=== PATIENT | male | born 1945 | race Caucasian/White ===

== ENCOUNTER 2017-12-08 09:33 | Observation (INO) ==
[2017-12-08] MEDS ORDERED: ENOXAPARIN 100 MG/ML SYRINGE SUBCUT STA (10:18)
[2017-12-08] MEDS ORDERED: ASPIRIN 325 MG TABLET PO STA (10:18)
[2017-12-08 10:27] LABS: Basophils # 0.1 10*3/uL (0.0-0.2); Basophils % 0.4 % (0.0-0.8); Eosinophils # 0.1 10*3/uL (0.0-0.87); Eosinophils % 1.2 % (0.00-10.9); Hematocrit 40.6 VOL% (42.0-52.0); Hemoglobin 14.3 GM/DL (14.0-18.0); Immature Granulocytes % 0.4 %; Immature Granulocytes Absolute 0.05 #; Lymphocytes # 2.8 10*3/uL (1.4-4.0); Lymphocytes % 24.1 % (21.2-54.2); Mean Corpuscular HGB Conc 35.2 GM/DL (32-36); Mean Corpuscular Hemoglobin 30 PG (27-34); Mean Corpuscular Volume 86.4 FL (87-102); Mean Platelet Volume 11.7 FL (9.6-12.0); Monocytes # 0.9 10*3/uL (0.11-0.8); Monocytes % 7.7 % (1.7-12.7); Neutrophils # 7.7 10*3/uL (1.4-7.4); Neutrophils % 66.2 % (38.7-73.9); Platelet Count 247 T/CUMM (130-400); Red Cell Distribution Width 12.8 % (9.3-17.3); White Blood Count 11.6 T/CUMM (4-12)
[2017-12-08 10:39] LABS: INR 0.9; PT Patient Result 9.8 SECS
[2017-12-08 12:28] LABS: Albumin 4.7 G/DL (3.4-5.0); Bilirubin,Total 0.6 MG/DL (0.2-1.0); Calcium 9.6 MG/DL (8.5-10.1); Osmolality,Calculated 282.5 MOS/KG (273-304); Potassium 4.1 MMOL/L (3.5-5.1); Total Protein 8.3 G/DL (6.4-8.3)
[2017-12-08] MEDS ORDERED: MAGNESIUM SULF RIDER 2 GM in PREMIX 1 EACH IV PRN ×2 (12:53→13:53)
[2017-12-08] MEDS ORDERED: traZODone 50 MG TABLET PO PRN (12:53)
[2017-12-08] MEDS ORDERED: guaiFENesin/DM ER 600-30 MG TABLET PO PRN (12:53)
[2017-12-08] MEDS ORDERED: diphenhydrAMINE CAP 25 MG CAPSULE PO PRN (12:53)
[2017-12-08] MEDS ORDERED: PROMETHAZINE 25 MG TABLET PO PRN (12:53)
[2017-12-08] MEDS ORDERED: ACETAMINOPHEN 325 MG TABLET PO PRN (12:53)
[2017-12-08] MEDS ORDERED: POTASSIUM CHLORIDE 20 MEQ TABLET PO PRN (12:53)
[2017-12-08] MEDS ORDERED: BISACODYL 5 MG TABLET PO PRN (12:53)
[2017-12-08] MEDS ORDERED: MAGNESIUM SULF RIDER 4 GM in PREMIX 1 EACH IV PRN (12:53)
[2017-12-08] MEDS ORDERED: DOCUSATE SODIUM 100 MG CAPSULE PO PRN (12:53)
[2017-12-08] MEDS ORDERED: ONDANSETRON 4 MG/2 ML VIAL IV PRN (12:53)
[2017-12-08] MEDS ORDERED: PANTOPRAZOLE 40 MG VIAL IV ONE (13:13)
[2017-12-08] MEDS ORDERED: SODIUM CHLORIDE 0.45% 1,000 ML IV SCH (13:30)
[2017-12-08] MEDS ORDERED: POTASSIUM CHLORIDE RIDER 10 MEQ in PREMIX 1 EACH IV PRN (13:53)
[2017-12-08] MEDS ORDERED: DIAZEPAM 5 MG TABLET PO ONE (13:53)
[2017-12-08] MEDS ORDERED: diphenhydrAMINE CAP 25 MG CAPSULE PO ONE (13:53)
[2017-12-08] MEDS ORDERED: LIDOCAINE 1% 20 ML VIAL ONE (14:15)
[2017-12-08] MEDS ORDERED: HEPARIN/NACL 0.9% 2 UNITS/ML 1,000 ML IV ONE (14:15)
[2017-12-08] MEDS ORDERED: fentaNYL 100 MCG/2 ML VIAL ONE (14:16)
[2017-12-08] MEDS ORDERED: MIDAZOLAM 2 MG/2 ML VIAL ONE (14:16)
[2017-12-08] MEDS ORDERED: fentaNYL 100 MCG/2 ML VIAL IV PRN (15:24)
[2017-12-08] MEDS ORDERED: DEXTROSE 50% 25 GM/50 ML VIAL IV PRN (15:24)
[2017-12-08] MEDS ORDERED: ACETAMINOPHEN/CODEINE 300-30 MG TABLET PO PRN (15:24)
[2017-12-08] MEDS ORDERED: GLUCAGON 1 MG VIAL IM PRN (15:24)
[2017-12-08] MEDS: LOSARTAN 25 MG TABLET PO SCH ×2 (16:58→21:13)
[2017-12-08] MEDS: SPIRONOLACTONE 25 MG TABLET PO SCH (16:58)
[2017-12-08] MEDS: hydroCHLOROthiazide 12.5 MG CAPSULE PO SCH (16:58)
[2017-12-08] MEDS: INSULIN REGULAR 100 UNIT/ML SUBCUT SCH ×2 (17:03→21:14)
[2017-12-08] MEDS ORDERED: INSULIN NPH/REGULAR 70/30 100 UNIT/ML SUBCUT SCH (19:00)
[2017-12-08] MEDS ORDERED: VERAPAMIL SR 180 MG TABLET PO SCH (21:00)
[2017-12-08] MEDS ORDERED: SIMVASTATIN 20 MG TABLET PO SCH (21:00)
[2017-12-08 21:12] LABS: Apearance,Urine CLEAR (Clear); Bilirubin,Urine Negative (Negative); Blood, Urine Moderate mg/dL (Negative); Glucose,Urine (UA) Negative (Negative); Ketones,Urine Negative (Negative); Nitrite,Urine Negative (Negative); Protein,Urine 30 MG/DL; RBC,Urine 3 /HPF (0-4); Urine Color Straw (Yellow); Urine Specific Gravity 1.047 (1.001-1.035); Urine Urobilinogen < 2.0 EU/DL (0.2-1.0); WBC,Urine 1 /HPF (0-6)
[2017-12-08] MEDS: RAMIPRIL 5 MG CAPSULE PO SCH (21:13)
[2017-12-08] MEDS: GABAPENTIN 300 MG CAPSULE PO SCH (21:13)
[2017-12-09 05:38] LABS: Basophils % 0.2 % (0.0-0.8); Eosinophils # 0.2 10*3/uL (0.0-0.87); Eosinophils % 1.8 % (0.00-10.9); Hematocrit 37.3 VOL% (42.0-52.0); Hemoglobin 13.1 GM/DL (14.0-18.0); Immature Granulocytes % 0.3 %; Immature Granulocytes Absolute 0.03 #; Lymphocytes # 2.6 10*3/uL (1.4-4.0); Lymphocytes % 28.7 % (21.2-54.2); Mean Corpuscular HGB Conc 35.1 GM/DL (32-36); Mean Corpuscular Hemoglobin 30 PG (27-34); Mean Corpuscular Volume 86.1 FL (87-102); Mean Platelet Volume 11.9 FL (9.6-12.0); Monocytes # 0.7 10*3/uL (0.11-0.8); Neutrophils # 5.6 10*3/uL (1.4-7.4); Platelet Count 231 T/CUMM (130-400); Red Blood Count 4.33 MC/CUMM (3.8-5.5); Red Cell Distribution Width 12.7 % (9.3-17.3); White Blood Count 9.1 T/CUMM (4-12)
[2017-12-09 06:11] LABS: Calcium 8.5 MG/DL (8.5-10.1); Osmolality,Calculated 282.4 MOS/KG (273-304); Risk Ratio 3.13; Troponin I < 0.015 NG/ML (0.00-0.045); VLDL CHOLESTEROL 31.6 MG/DL
[2017-12-09] MEDS ORDERED: LEVOTHYROXINE 25 MCG TABLET PO SCH (06:30)
[2017-12-09 08:02] VITALS: BP 148/71
[2017-12-09] MEDS: INSULIN REGULAR 100 UNIT/ML SUBCUT SCH ×2 (08:37→11:54)
[2017-12-09] MEDS: GABAPENTIN 300 MG CAPSULE PO SCH (08:40)
[2017-12-09] MEDS: RAMIPRIL 5 MG CAPSULE PO SCH (08:40)
[2017-12-09] MEDS: SPIRONOLACTONE 25 MG TABLET PO SCH (08:40)
[2017-12-09] MEDS ORDERED: INSULIN NPH/REGULAR 70/30 100 UNIT/ML SUBCUT SCH (09:00)
[2017-12-09] MEDS ORDERED: ASPIRIN EC 81 MG TABLET PO SCH (09:00)
[2017-12-09] MEDS ORDERED: PANTOPRAZOLE 40 MG TABLET PO SCH (09:00)
[2017-12-09] MEDS ORDERED: CARVEDILOL 3.125 MG TABLET PO SCH (09:00)
[2017-12-09] MEDS: hydroCHLOROthiazide 12.5 MG CAPSULE PO SCH (09:31)
== END 2017-12-09 14:13 | disposition home or self-care (01) ==
LOC: N.EDINP 09:33 → N.ED 09:33 → N.2W 12:39 → N.TELES 14:39
PROVIDERS: ADMIT Internal Medicine Cardiovascular Disease; ATTEND Internal Medicine Cardiovascular Disease
PROC: CLCCHCL (ICD-10-PCS; 2017-12-08 14:45)

== ENCOUNTER 2022-02-21 09:56 | Inpatient (IN) ==
[2022-02-21] MEDS ORDERED: MORPHINE 2 MG/1 ML SYRINGE IV ONE (10:15)
[2022-02-21] MEDS ORDERED: ONDANSETRON 4 MG/2 ML VIAL IV ONE ×2 (10:15→12:23)
[2022-02-21] MEDS ORDERED: SODIUM CHLORIDE 0.9% 1,000 ML IV STA (10:15)
[2022-02-21 10:20] LABS: Basophils % 0.2 % (0.0-0.8); Eosinophils % 0.1 % (0.00-10.9); Hematocrit 32.5 VOL% (42.0-52.0); Hemoglobin 10.8 GM/DL (14.0-18.0); Immature Granulocytes % 0.7 %; Immature Granulocytes Absolute 0.09 #; Lymphocytes % 7.6 % (21.2-54.2); Mean Corpuscular HGB Conc 33.2 GM/DL (32-36); Mean Corpuscular Volume 88.3 FL (87-102); Mean Platelet Volume 11.8 FL (9.6-12.0); Monocytes % 7.9 % (1.7-12.7); Neutrophils % 83.5 % (38.7-73.9); Platelet Count 332 T/CUMM (130-400); Red Blood Count 3.68 MC/CUMM (3.8-5.5); Red Cell Distribution Width 13.2 % (9.3-17.3); White Blood Count 13.1 T/CUMM (4-12)
[2022-02-21 10:36] LABS: INR 0.9; PT Patient Result 10.3 SECS (10.1-12.1)
[2022-02-21 10:39] LABS: Albumin 3.2 G/DL (3.4-5.0); Bilirubin,Total 1.2 MG/DL (0.20-1.00); Calcium 10.2 MG/DL (8.5-10.1); Osmolality,Calculated 299.8 MOS/KG (273-304); Potassium 3.2 MMOL/L (3.5-5.1); Total Protein 7.9 G/DL (6.4-8.2)
[2022-02-21] MEDS ORDERED: SODIUM CHLORIDE 0.9% 500 ML IV STA (10:52)
[2022-02-21 11:05] LABS: Bacteria,Urine Occasional /HPF (Few); Hyaline Casts,Urine 1 /LPF (0-3); Mucus,Urine Occasional /LPF (Occasional); RBC,Urine 2 /HPF (0-4)
[2022-02-21 11:08] LABS: Glucose,Urine (UA) 500 mg/dL (Negative); Protein,Urine 100 mg/dL (Negative); Urine Appearance Clear (Clear); Urine Color Yellow (Yellow)
[2022-02-21 11:09] LABS: Bilirubin,Urine Small mg/dL (Negative); Blood, Urine Trace mg/dL (Negative); Ketones,Urine >=160 mg/dL (Negative); Nitrite,Urine Negative (Negative); Urine Urobilinogen 0.2 eU/dL (<2.0)
[2022-02-21] MEDS ORDERED: HYDROmorphone 1 MG/1 ML SYRINGE IV STA (12:23)
[2022-02-21] MEDS ORDERED: hydrALAZINE 20 MG/1 ML VIAL IV PRN (13:32)
[2022-02-21] MEDS ORDERED: ONDANSETRON 4 MG/2 ML VIAL IV PRN (13:32)
[2022-02-21] MEDS ORDERED: ACETAMINOPHEN 325 MG TABLET PO PRN (13:32)
[2022-02-21] MEDS ORDERED: MORPHINE 2 MG/1 ML SYRINGE IV PRN (13:32)
[2022-02-21 14:01] LABS: % Iron Saturation 18.4 % (18-50)
[2022-02-21 14:25] LABS: Folate > 24.00 NG/ML (5.38-24.0); Vitamin B12 621 PG/ML (211-911)
[2022-02-21] MEDS: PANTOPRAZOLE 40 MG VIAL IV SCH (14:27)
[2022-02-21] MEDS: SODIUM CHLORIDE 0.9% 1,000 ML IV SCH ×2 (14:30→23:46)
[2022-02-21] MEDS: LEVOFLOXACIN INJ 500 MG/100 ML PREMIX IV SCH (14:31)
[2022-02-21] MEDS: POTASSIUM CHLORIDE RIDER 10 MEQ/100 ML PREMIX IV SCH ×3 (15:23→17:41)
[2022-02-21] MEDS: INSULIN REGULAR 100 UNIT/ML SUBCUT SCH ×2 (18:14→21:33)
[2022-02-21] MEDS: metroNIDAZOLE INJ 500 MG/100 ML PREMIX IV SCH (18:58)
[2022-02-21] MEDS: HEPARIN 5,000 UNIT/1 ML VIAL SUBCUT SCH (21:31)
[2022-02-21] MEDS: MORPHINE 2 MG/1 ML SYRINGE IV PRN (21:32)
[2022-02-22] MEDS: metroNIDAZOLE INJ 500 MG/100 ML PREMIX IV SCH ×3 (00:56→16:31)
[2022-02-22] MEDS: MORPHINE 2 MG/1 ML SYRINGE IV PRN ×5 (02:05→20:16)
[2022-02-22 05:58] LABS: Basophils % 0.2 % (0.0-0.8); Eosinophils # 0.2 10*3/uL (0.0-0.87); Eosinophils % 1.9 % (0.00-10.9); Hematocrit 25.1 VOL% (42.0-52.0); Immature Granulocytes % 0.7 %; Immature Granulocytes Absolute 0.07 #; Lymphocytes # 1.2 10*3/uL (1.4-4.0); Lymphocytes % 11.3 % (21.2-54.2); Mean Corpuscular HGB Conc 32.7 GM/DL (32-36); Mean Corpuscular Volume 90.3 FL (87-102); Mean Platelet Volume 12.2 FL (9.6-12.0); Monocytes % 9.3 % (1.7-12.7); Neutrophils % 76.6 % (38.7-73.9); Red Cell Distribution Width 13.3 % (9.3-17.3); White Blood Count 10.5 T/CUMM (4-12)
[2022-02-22 06:00] LABS: Hemoglobin 8.2 GM/DL (14.0-18.0); Red Blood Count 2.78 MC/CUMM (3.8-5.5)
[2022-02-22 06:01] LABS: Platelet Count 248 T/CUMM (130-400)
[2022-02-22 06:51] LABS: Albumin 2.3 G/DL (3.4-5.0); Bilirubin,Total 0.8 MG/DL (0.20-1.00); Calcium 8.3 MG/DL (8.5-10.1); Osmolality,Calculated 301.7 MOS/KG (273-304); Potassium 3.6 MMOL/L (3.5-5.1); Risk Ratio 3.26; Thyroid Stimulating Hormone 3.95 uIU/ml (0.358-3.74); Total Protein 5.7 G/DL (6.4-8.2)
[2022-02-22] MEDS: INSULIN REGULAR 100 UNIT/ML SUBCUT SCH ×4 (08:24→20:43)
[2022-02-22] MEDS: SODIUM CHLORIDE 0.9% 1,000 ML IV SCH ×2 (08:56→19:54)
[2022-02-22] MEDS: PANTOPRAZOLE 40 MG VIAL IV SCH (08:59)
[2022-02-22] MEDS: HEPARIN 5,000 UNIT/1 ML VIAL SUBCUT SCH ×2 (09:01→20:16)
[2022-02-22] MEDS: LEVOFLOXACIN INJ 500 MG/100 ML PREMIX IV SCH (13:36)
[2022-02-23] MEDS: metroNIDAZOLE INJ 500 MG/100 ML PREMIX IV SCH ×3 (03:06→16:23)
[2022-02-23] MEDS: SODIUM CHLORIDE 0.9% 1,000 ML IV SCH ×3 (04:15→16:04)
[2022-02-23 05:39] LABS: Basophils % 0.4 % (0.0-0.8); Eosinophils # 0.2 10*3/uL (0.0-0.87); Eosinophils % 1.8 % (0.00-10.9); Hematocrit 27.6 VOL% (42.0-52.0); Hemoglobin 8.7 GM/DL (14.0-18.0); Immature Granulocytes % 1.2 %; Immature Granulocytes Absolute 0.12 #; Lymphocytes # 1.3 10*3/uL (1.4-4.0); Lymphocytes % 12.9 % (21.2-54.2); Mean Corpuscular HGB Conc 31.5 GM/DL (32-36); Mean Corpuscular Volume 91.7 FL (87-102); Mean Platelet Volume 11.7 FL (9.6-12.0); Monocytes # 0.8 10*3/uL (0.11-0.8); Monocytes % 7.3 % (1.7-12.7); Neutrophils % 76.4 % (38.7-73.9); Platelet Count 273 T/CUMM (130-400); Red Blood Count 3.01 MC/CUMM (3.8-5.5); Red Cell Distribution Width 13.5 % (9.3-17.3); White Blood Count 10.3 T/CUMM (4-12)
[2022-02-23 06:07] LABS: Albumin 2.6 G/DL (3.4-5.0); Bilirubin,Total 0.6 MG/DL (0.20-1.00); Calcium 8.2 MG/DL (8.5-10.1); Potassium 3.8 MMOL/L (3.5-5.1); Total Protein 6.3 G/DL (6.4-8.2)
[2022-02-23] MEDS: INSULIN REGULAR 100 UNIT/ML SUBCUT SCH ×4 (10:16→23:07)
[2022-02-23] MEDS: HEPARIN 5,000 UNIT/1 ML VIAL SUBCUT SCH ×2 (10:16→21:13)
[2022-02-23] MEDS: PANTOPRAZOLE 40 MG VIAL IV SCH (10:17)
[2022-02-23] MEDS ORDERED: HYDROmorphone 1 MG/1 ML SYRINGE IV ONE (11:01)
[2022-02-23] MEDS: LEVOFLOXACIN INJ 500 MG/100 ML PREMIX IV SCH (14:40)
[2022-02-23] MEDS: MORPHINE 2 MG/1 ML SYRINGE IV PRN (16:19)
[2022-02-24] MEDS: SODIUM CHLORIDE 0.9% 1,000 ML IV SCH ×2 (00:54→08:30)
[2022-02-24] MEDS: metroNIDAZOLE INJ 500 MG/100 ML PREMIX IV SCH ×2 (00:55→08:30)
[2022-02-24] MEDS: MORPHINE 2 MG/1 ML SYRINGE IV PRN (04:55)
[2022-02-24 04:56] LABS: Basophils % 0.2 % (0.0-0.8); Eosinophils # 0.2 10*3/uL (0.0-0.87); Eosinophils % 1.6 % (0.00-10.9); Hematocrit 25.9 VOL% (42.0-52.0); Hemoglobin 8.2 GM/DL (14.0-18.0); Immature Granulocytes Absolute 0.09 #; Lymphocytes # 1.1 10*3/uL (1.4-4.0); Lymphocytes % 12.5 % (21.2-54.2); Mean Corpuscular HGB Conc 31.7 GM/DL (32-36); Mean Corpuscular Volume 92.5 FL (87-102); Mean Platelet Volume 11.9 FL (9.6-12.0); Monocytes # 0.7 10*3/uL (0.11-0.8); Monocytes % 7.2 % (1.7-12.7); Neutrophils % 77.5 % (38.7-73.9); Platelet Count 281 T/CUMM (130-400); Red Cell Distribution Width 13.6 % (9.3-17.3); White Blood Count 9.1 T/CUMM (4-12)
[2022-02-24 05:22] LABS: Calcium 7.7 MG/DL (8.5-10.1); Potassium 3.2 MMOL/L (3.5-5.1)
[2022-02-24 07:56] VITALS: BP 168/84
[2022-02-24] MEDS: INSULIN REGULAR 100 UNIT/ML SUBCUT SCH (08:09)
[2022-02-24] MEDS ORDERED: HYDROmorphone 1 MG/1 ML SYRINGE IV ONE (08:30)
== END 2022-02-24 08:36 | disposition hospice, home (50) | DRG 844 ==
LOC: EDBD → EDUNIT# → N.ED 09:56 → SUATTDRO 13:31 → N.EDINP 13:31 → N.TELEN 17:26
PROVIDERS: ADMIT Internal Medicine; ATTEND Internal Medicine